=== PATIENT | female | born 1945 | race Caucasian/White ===

== ENCOUNTER 2019-07-12 14:16 | Emergency (ER) | payer OTHER ==
[~2019-07-12] VITALS: Ht 162.6 cm; Wt 67.1 kg
[~2019-07-12 14:16] MED LIST: ARTHRITIS PAIN650 M2 PO; ATI1 PO; CEL20 PO; CITALOPRAM20 MG PO; COM10 PO; DEC4 PO; FOS10 PO; NAPROXEN220 MG PO; OXYBUTYNIN ER5 MG PO; OXYBUTYNIN10 MG PO; TAG300 PO; Z PO; ZOV200 PO
[2019-07-12 14:24] VITALS: Ht 162.6 cm; Wt 67.1 kg
[2019-07-12 16:35] VITALS: BP 158/79
== END 2019-07-12 16:35 | disposition home or self-care (01) ==
LOC: ED 14:16
DX: M16.11 Unilateral primary osteoarthritis, right hip (principal); Z85.3 Personal history of malignant neoplasm of breast; Z98.890 Other specified postprocedural states; Z88.0 Allergy status to penicillin; Z88.2 Allergy status to sulfonamides; Z88.5 Allergy status to narcotic agent
CPT/HCPCS: J1885